=== PATIENT | male | born 1945 | race Caucasian/White ===

== ENCOUNTER 2018-04-14 16:58 | Emergency (ER) | payer BC ==
[~2018-04-14] VITALS: Ht 195.6 cm; Wt 111.6 kg
[2018-04-14 16:58] VITALS: BP 138/87
--- NOTE | 2018-04-14 17:06 | NUR ---
PT BIB SELF COMPLAINING ISOLATED LT LOWER LEG AND FOOT SWELLING X4 DAYS. PT STATES "I SCRATCHED MY LEG BECAUSE IT WAS ITCHY SINCE THEN IT BEGAN TO SWELL LIKE THIS." PT AA/OX4. NO OTHER COMPLAINTS. NO S/S OF SOB. VSS. NAD. AMBULATED WITH CANE TO HOSP BED. AWAITING EVAL/ ORDERS.
== END 2018-04-14 17:50 | disposition home or self-care (01) ==
LOC: ER 17:01
DX: L03.116 Cellulitis of left lower limb (principal); L02.416 Cutaneous abscess of left lower limb; I10 Essential (primary) hypertension; I48.91 Unspecified atrial fibrillation; Z86.73 Personal history of transient ischemic attack (TIA), and cerebral infarction without residual deficits
CPT/HCPCS: 99283; A4606; Z7610